=== PATIENT | male | born 1960 | race African-American/Black ===

== ENCOUNTER → 2017-06-20 | Emergency (ER) | payer OTHER ==
[~2017-06-20] VITALS: Ht 175.3 cm; Wt 91.6 kg
== END | disposition home or self-care (01) ==
LOC: ER 14:27
DX: R17 Unspecified jaundice (principal)

== ENCOUNTER → 2020-04-20 | Emergency (ER) | payer OTHER ==
[~2020-04-20] VITALS: Ht 177.8 cm; Wt 102.1 kg
== END | disposition left against medical advice (07) ==
LOC: ER 14:09
DX: Z53.20 Procedure and treatment not carried out because of patient's decision for unspecified reasons (principal)